=== PATIENT | female | born 1955 | race Hispanic/Latino ===

== ENCOUNTER 2023-10-01 18:30 | Emergency (ER) | payer SELFPAY ==
[~2023-10-01] VITALS: Ht 160 cm; Wt 59.0 kg
[2023-10-01 19:29] LABS: BASOPHILS # (AUTO) 0.03 K/uL (0.00-0.20); BASOPHILS % (AUTO) 0.4 % (0.0-5.0); EOSINOPHILS # (AUTO) 0.14 K/uL (0.00-0.70); EOSINOPHILS % (AUTO) 1.8 % (0.0-8.0); HEMATOCRIT 39.7 % (36-48); IMMATURE GRANULOCYTE ABSOLUTE 0.02 K/uL (0-1); LYMPHOCYTES # (AUTO) 2.5 K/uL (1.0-4.8); LYMPHOCYTES % (AUTO) 32.1 % (21.0-51.0); MEAN CORPUSCULAR HEMOGLOBIN 30.9 pg (27.0-33.0); MEAN CORPUSCULAR HGB CONC 33.8 g/dL (32.0-36.0); MEAN CORPUSCULAR VOLUME 91.7 fL (79-99); MONOCYTES # (AUTO) 0.5 K/uL (0.1-1.0); MONOCYTES % (AUTO) 6.3 % (3.0-13.0); NEUTROPHILS # (AUTO) 4.7 K/uL (1.8-7.7); NEUTROPHILS % (AUTO) 59.1 % (40.0-77.0); PLATELET COUNT (AUTO) 255 K/uL (130-400); RED BLOOD CELL COUNT(AUTO) 4.33 MIL/uL (4.00-5.50); RED CELL DISTRIBUTION WIDTH 12.9 % (11.0-15.5); WHITE BLOOD COUNT (AUTO) 7.9 K/uL (4.8-10.8)
[2023-10-01] MEDS: 0.9%NACL 1000ML 1,000 ML IV ONE (19:35)
[2023-10-01 19:39] LABS: CREATININE 0.7 mg/dL (0.5-1.0); INR 0.95 (0.85-1.15); POTASSIUM 3.7 mmol/L (3.5-5.1); PROTHROMBIN TIME 10.3 SEC (9.6-11.6)
[2023-10-01 19:40] LABS: PARTIAL THROMBOPLASTIN TIME 27.4 SEC (26.3-35.5)
[2023-10-01 19:43] LABS: BILIRUBIN,TOTAL 0.3 mg/dL (0.2-1.0); TOTAL PROTEIN, SERUM 7.2 g/dL (6.0-8.3)
[2023-10-01 21:51] VITALS: BP 160/74; PULSE 70; RESP 18; O2SAT 98
== END 2023-10-01 21:53 | disposition home or self-care (01) ==
LOC: EDH 18:30
DX: T63.091A Toxic effect of venom of other snake, accidental (unintentional), initial encounter (principal); Y92.89 Other specified places as the place of occurrence of the external cause
CPT/HCPCS: 99283; 80053; 85025; 85610; 85730; 36415; J7030

== ENCOUNTER 2023-12-26 11:28 | Emergency (ER) | payer SELFPAY ==
[~2023-12-26] VITALS: Ht 160 cm; Wt 59.0 kg
[2023-12-26 11:29] VITALS: BP 180/89; PULSE 94; RESP 16; TEMP 98.1
--- NOTE | 2023-12-26 11:52 | ERN ---
General Chief Complaint: Itching Stated Complaint: GENERALIZED ITCHING X 2 MONTHS Time Seen by MD: 11:30 Time Seen by Midlevel: 11:30 Source: patient History of Present Illness Initial Comments Patient is a 68-year-old female with no significant past medical history presenting to the emergency department for a generalized rash that has been ongoing for the last two days. Patient states her rash started after she got new chickens [place]. Denies fever, chills, or any other symptoms at this time. She has attempted multiple home remedies with little to no relief. Most recently she attempted alcohol over her body however this worsened her symptoms. Allergies: Coded Allergies: No Known Drug Allergies (Unverified Allergy, Unknown, 10/01/23) Past Medical History Past Medical History: No Pertinent History Past Surgical History: None ROS Dictation CONSTITUTIONAL: Negative except for HPI HEAD/FACE: Negative except for HPI EENT: Negative except for HPI RESPIRATORY: Negative except for HPI GASTROINTESTINAL/ABDOMINAL: Negative except for HPI GENITOURINARY: Negative except for HPI MUSCULOSKELETAL: Negative except for HPI INTEGUMENTARY: Negative except for HPI NEUROLOGICAL/PSYCH: Negative except for HPI HEMATOLOGIC/LYMPHATIC: Negative except for HPI All Systems Negative, Except as noted above. 13 point review of systems assessed and all negative except for above. Physical Exam Physical Exam Dictation Vital Signs reviewed General Appearance: Alert, oriented x 3, no acute distress, well developed, nourished. Head and Face: non-traumatic. Eyes: PERRL, pink conjunctivas, eyelid no trauma, anterior chamber with arcus senilis. Ears: Pinnas intact and no signs of trauma or erythema ear canals clear and no discharge TM no erythema Nose: No discharge, no bleeding. Oropharynx: Mouth normal, tongue pink, pharynx clear,no erythema, tonsils no exudates, no abscesses noted, mucous membrane moist Neck: Supple, non-tender, no thyromegaly, no masses, no JVD, no bruits Breast:Deferred Chest:No tenderness, no crepitus, no paradoxical movement, no retractions Lungs:Clear, well-ventilated, symmetric, no rales, no wheezing, no rhonchi, no stridor, good breath sounds bilaterally Heart: Regular rate, regular rhythm, no murmur, no gallops Vascular: no peripheral edema, Abdomen: Soft, positive bowel sounds, nondistended, no guarding, nontender, no rebound, no masses no hepatomegaly, no splenomegaly, no Barton's sign, no hernias. Rectal: Deferred Genital: Deferred Neurological: Normal speech, motor function intact, sensory function intact Musculoskeletal: Neck nontender, full range of motion, back nontender, full range of motion, Extremities: nontender, full range of motion Skin: There is a generalized eruption with linear burrows, papules and pustules throughout the entire body worse in the neck, physical exam is consistent with scabies Lymphatic: Deferred MDM MDM: Patient is a 68-year-old female with no significant past medical history presenting to the emergency department for a generalized rash that has been ongoing for the last two days. Patient states her rash started after she got new chickens [place] her [place]. Denies fever, chills, or any other symptoms at this time. She has attempted multiple home remedies with little to no relief. Most recently she attempted alcohol over her body however this worsened her symptoms. On physical examination patient has generalized eruption with linear burrows, papules and pustules. This is consistent with scabies. Patient was prescribed permethrin cream and a topical steroid for supportive management. I have also given her a prescription for Keflex to prevent a secondary infection. She was also sent home with Benadryl for supportive management. Patient was advised to follow up with her PCP in 2-3 days for repeat evaluation or return to the ER for any new or worsening symptoms. Differential diagnosis: There are no social concerns with this patient. Prescription drug management Prescriptions will include: Permethrin, Keflex, Benadryl, hydrocortisone Medical management and examination interpretation discussions were had by me with other qualified healthcare professionals as indicated for the patient's care. ED Course Vital Signs Date Time Temp Pulse Resp B/P (MAP) Pulse Ox O2 Delivery O2 Flow Rate FiO2 12/26/23 11:29 98.1 94 16 180/89 97 Room Air 0 DX & DISP Disposition: Discharge Departure Impression: Primary Impression: Scabies Condition: Stable Scripts Hydrocortisone Acetate (Hydrocortisone) 1 % Oint...g. 1 APPL TP BID for 7 Days, #28 GM 0 Refills Prov: OLIVER BONILLA 12/26/23 Cephalexin Monohydrate (Keflex) 500 Mg Cap 500 MG PO BID for 5 Days, #10 CAP Prov: OLIVER BONILLA 12/26/23 Diphenhydramine HCl (Benadryl) 25 Mg Cap 25 MG PO BID for 7 Days, #14 CAP Prov: OLIVER BONILLA 12/26/23 Permethrin (Permethrin) 5 % Cream..g. 1 APPL TP ONCE for 1 Day, #60 GM 0 Refills massage into skin from head to soles of feet one time, leave on for 8-14 hours then remove by thorough washing Prov: OLIVER BONILLA 12/26/23 Additional Instructions: Your physical examination is consistent with scabies. I have prescribed you permethrin 5% cream. Please apply from the neck down. The one for 8-12 hours before washing off. You may reapply in 1-2 weeks if incomplete effect. I have also prescribed you a topical steroid for symptomatic management. Referrals: NONE (PCP) Time of Disposition: 11:59 I have reviewed the case, and I agree with, Diagnosis and Plan I performed the substantive portion of the visit. I have reviewed and personally made and approve the management plan that is documented in the note by myself or the TO[facility]ITO. I acknowledge for responsibility for the patient's management plan. OLIVER BONILLA Dec 26, 2023 11:52
[2023-12-26] MEDS ORDERED: CEPH500B PO (12:02)
[2023-12-26] MEDS ORDERED: DIPH-1242 PO (12:02)
[2023-12-26] MEDS ORDERED: PERM60CR4 TP (12:02)
[2023-12-26] MEDS ORDERED: HYDR28OI10 TP (12:03)
== END 2023-12-26 13:01 | disposition home or self-care (01) ==
LOC: EDH 11:28
DX: B86 Scabies (principal)
CPT/HCPCS: 99283